=== PATIENT | female | born 1960 | race Caucasian/White ===

== ENCOUNTER 2016-10-20 22:11 | Emergency (ER) | payer OTHER ==
[~2016-10-20] VITALS: Ht 160 cm; Wt 81.8 kg
[~2016-10-20 22:11] MED LIST: ASPI81TA50 PO; ATEN-51 PO; BENA10TA48 PO; GLIP-95 PO; HYD25 PO; MAG355OR15 PO; NAPR-260 PO; PIOG30TA2 PO
[2016-10-20 22:21] VITALS: Ht 160 cm; Wt 81.8 kg
[2016-10-20] MEDS ORDERED: ATEN-51 PO (22:39)
[2016-10-20] MEDS ORDERED: HYD25 PO (22:39)
[2016-10-20] MEDS ORDERED: GLIP-95 PO (22:39)
[2016-10-20] MEDS ORDERED: PIOG30TA26 PO (22:40)
[2016-10-20] MEDS ORDERED: BENA10TA48 PO (22:40)
[2016-10-20] MEDS ORDERED: GABA100C14 PO (22:40)
[2016-10-20] MEDS ORDERED: ALBUTEROL 0.5% (NEB) 2.5 MG/0.5 ML AMP INH ONE (23:00)
[2016-10-20] MEDS ORDERED: IPRATROPIUM (NEB) 0.5 MG/2.5 ML AMP INH ONE (23:00)
--- NOTE | 2016-10-20 23:10 | RADRPT ---
PROCEDURE: XR Chest. CLINICAL INDICATION: Shortness of breath. TECHNIQUE: Portable AP upright view of the chest was obtained. COMPARISON: 10/06/2015 FINDINGS: The cardiomediastinal silhouette is within upper normal limits. Mild bibasilar subsegmental atelect asis is present without evidence of pneumonia. There is no evidence for pleural effusion, pneumotho rax or pulmonary vascular congestion. The osseous structures are intact with no evidence for acute abnormality. RPTAT:HJJR IMPRESSION: Top normal cardiac silhouette size with development of mild bibasilar subsegmental atelectasis nikita red to 10/06/2015. Physician Nancy Date Time Electronically viewed and signed by Shaggy Russell Physician on 10/20/2016 23:10 JR/
[2016-10-20 23:22] LABS: BASOPHIL # 0.1 10^3/ul (0.0-0.1); BASOPHILS % 0.9 % (0.0-2.0); EOSINOPHILS # 0.1 10^3/ul (0.0-0.5); EOSINOPHILS % 0.8 % (0.0-7.0); HEMATOCRIT 42.8 % (37.0-47.0); HEMOGLOBIN 14.8 g/dl (12.0-16.0); LYMPHOCYTES # 1.8 10^3/ul (0.8-2.9); LYMPHOCYTES % 26.1 % (15.0-51.0); MEAN CORPUSCULAR HEMOGLOBIN 30.9 pg (29.0-33.0); MEAN CORPUSCULAR HGB CONC 34.6 g/dl (32.0-37.0); MEAN CORPUSCULAR VOLUME 89.2 fl (82.0-101.0); MEAN PLATELET VOLUME 8.9 fl (7.4-10.4); MONOCYTE # 0.6 10^3/ul (0.3-0.9); MONOCYTES % 9.4 % (0.0-11.0); NEUTROPHIL # 4.4 10^3/ul (1.6-7.5); NEUTROPHILS % 62.8 % (39.0-77.0); PLATELET COUNT 186 10^3/UL (140-440); RED CELL DISTRIBUTION WIDTH 12.9 % (11.5-14.5); UNCORRECTED WBC 6.9 10^3/ul (4.8-10.8); WHITE BLOOD COUNT 6.9 10^3/ul (4.8-10.8)
[2016-10-20 23:25] LABS: POTASSIUM 3.8 mmol/L (3.5-5.1)
[2016-10-20 23:27] LABS: CREATININE 0.72 mg/dl (0.44-1.00)
[2016-10-20 23:28] LABS: CALCIUM 9.4 mg/dl (8.4-10.2)
[2016-10-20 23:34] LABS: CONDITION 1
[2016-10-20] MEDS ORDERED: IPRATROPIUM (NEB) 0.5 MG/2.5 ML AMP NEB STA (23:56)
[2016-10-20] MEDS ORDERED: ALBUTEROL 0.5% (NEB) 2.5 MG/0.5 ML AMP NEB STA (23:56)
[2016-10-21 00:12] VITALS: BP 98/50; PULSE 89; RESP 22
--- NOTE | 2016-10-21 00:38 | ERD ---
ER Documentation Chief Complaint Date/Time DATE: 10/21/16 TIME: 00:37 Chief Complaint FEVER WITH COUGH, CONGESTION, AND CHEST TIGHTNESS X 2 DAYS. NAUSEOUS TODAY HPI This is a 56-year-old female comes in with fever with cough just chest tightness for 2 days. That she was a little bit nauseous today. Cough is mildly productive of whitish sputum. No fevers or chills. No nausea no vomiting. No sick contacts. No other current complaints. ROS All systems reviewed and are negative except as per history of present illness. Medications Home Meds Reported Medications Pioglitazone Hcl* (Pioglitazone Hcl*) 30 Mg Tablet, 30 MG PO DAILY, TAB 10/20/16 Gabapentin* (Gabapentin*) 100 Mg Capsule, 100 MG PO TID, #90 CAP 10/20/16 Benazepril Hcl* (Benazepril Hcl*) 10 Mg Tablet, 10 MG PO DAILY, #30 TAB 10/20/16 Atenolol* (Atenolol*) 25 Mg Tablet, 25 MG PO BID, #60 TAB 10/20/16 Hydrochlorothiazide* (Hydrochlorothiazide*) 25 Mg Tab, 25 MG PO DAILY, #30 TAB 10/20/16 Glipizide* (Glipizide*) 10 Mg Tablet, 10 MG PO AC BREAKFAST DINNER, TAB 10/20/16 Discontinued Reported Medications Aspirin (Aspir-Low) 81 Mg Tablet.dr, 81 MG PO DAILY 10/06/15 Pioglitazone Hcl* (Actos*) 30 Mg Tablet, 30 MG PO DAILY, #30 TAB 10/06/15 Hydrochlorothiazide* (Hydrochlorothiazide*) 25 Mg Tab, 25 MG PO DAILY, #30 TAB 10/06/15 Benazepril Hcl* (Benazepril Hcl*) 10 Mg Tablet, 10 MG PO DAILY, #30 TAB 10/06/15 Glipizide* (Glipizide*) 10 Mg Tablet, 10 MG PO BID, TAB 10/06/15 Atenolol* (Atenolol*) 25 Mg Tablet, 25 MG PO BID, #60 TAB 10/06/15 Discontinued Scripts Mag Hydrox/Al Hydrox/Simeth (Maalox Max Strength Susp) 769 Ml Oral.susp, 2 TSP PO TID, #24 OZ Prov:IRMA AVILA MD 10/06/15 Naproxen* (Naprosyn*) 500 Mg Tablet, 500 MG PO BID Y for PAIN AND/OR INFLAMMATION, #30 TAB Prov:IRMA AVILA MD 10/06/15 Allergies Allergies: Coded Allergies: No Known Allergy (Unverified , 10/20/16) PMhx/Soc History of Surgery: No Anesthesia Reaction: No Hx Neurological Disorder: No Hx Respiratory Disorders: No Hx Cardiac Disorders: Yes (High B/p & diabetes) Hx Psychiatric Problems: No Hx Miscellaneous Medical Probl: Yes (DM ) Hx Alcohol Use: No Hx Substance Use: No Hx Tobacco Use: No Smoking Status: Never smoker Physical Exam Vitals Vital Signs Date Time Temp Pulse Resp B/P Pulse Ox O2 Delivery O2 Flow Rate FiO2 10/21/16 00:12 89 22 98/50 95 10/21/16 00:07 90 20 94 Nasal Cannula 2.0 10/20/16 23:03 Nasal Cannula 2 10/20/16 23:02 81 20 94 Nasal Cannula 2.0 10/20/16 22:21 98.2 85 22 98/54 93 10/20/16 22:21 Nasal Cannula 2.0 Physical Exam Const: [] Head: Atraumatic Eyes: Normal Conjunctiva ENT: Normal External Ears, Nose and Mouth. Neck: Full range of motion..~ No meningismus. Resp: Scattered wheezes bilaterally. Crackles in both lung bases. Cardio: Regular rate and rhythm, no murmurs Abd: Soft, non tender, non distended. Normal bowel sounds Skin: No petechiae or rashes Back: No midline or flank tenderness Ext: No cyanosis, or edema Neur: Awake and alert Psych: Normal Mood and Affect Result Diagram: 10/20/16225710/20/162257 Results 24 hrs Laboratory Tests Test 10/20/16 22:58 Anion Gap 16 Basophils # 0.110^3/ul Basophils % 0.9% Blood Urea Nitrogen 16mg/dl Calcium Level 9.4mg/dl Carbon Dioxide Level 27mmol/L Chloride Level 95mmol/L Creatinine 0.72mg/dl Eosinophils # 0.110^3/ul Eosinophils % 0.8% Glucose Level 176mg/dl Hematocrit 42.8% Hemoglobin 14.8g/dl Lactic Acid Level 2.1mmol/L Lymphocytes # 1.810^3/ul Lymphocytes % 26.1% Mean Corpuscular Hemoglobin 30.9pg Mean Corpuscular Hemoglobin Concent 34.6g/dl Mean Corpuscular Volume 89.2fl Mean Platelet Volume 8.9fl Monocytes # 0.610^3/ul Monocytes % 9.4% Neutrophils # 4.410^3/ul Neutrophils % 62.8% Nucleated Red Blood Cells # 0.010^3/ul Nucleated Red Blood Cells % 0.0/100WBC Platelet Count 12547^3/UL Potassium Level 3.8mmol/L Red Blood Count 4.8010^6/ul Red Cell Distribution Width 12.9% Sodium Level 134mmol/L White Blood Count 6.910^3/ul Current Medications Medications (Trade) Dose Ordered Sig/Bettie Route PRN Reason Start Time Stop Time Status Last Admin Dose Admin Albuterol (Proventil 0.5% (Neb)) 5 mg ONCE ONCE INH 10/20/16 23:00 10/20/16 23:01 DC 10/20/16 23:02 Ipratropium Amity (Atrovent 0.02% (Neb)) 0.5 mg ONCE ONCE INH 10/20/16 23:00 10/20/16 23:01 DC 10/20/16 23:01 Albuterol (Proventil 0.5% (Neb)) 5 mg ONCE STAT NEB 10/20/16 23:56 10/20/16 23:57 DC 10/21/16 00:07 Ipratropium Amity (Atrovent 0.02% (Neb)) 0.5 mg ONCE STAT NEB 10/20/16 23:56 10/20/16 23:57 DC 10/21/16 00:07 Procedures/MDM EKG: Rate/Rhythm: Normal Sinus Rhythm QRS, ST, T-waves: No changes consistent w/ acute ischemia Impression: No evidence of ischemia or arrhythmia Chest X-ray 1V Interpreted by me: Soft Tissue: No acute abnormalities Bones: No acute abnormalities Mediastinum/Cardiac Silhouette/Lungs: Peribronchial cuffing. Increased interstitial markings. Impression: Bronchitis Medical decision makin-year-old female comes in with cough with wheeze. Evidence of bronchitis on physical exam and on chest x-ray. Patient has feels better post breathing treatment. Patient will be discharged home with albuterol , azithromycin, prednisone, Tessalon. Return if worsening symptoms. Follow-up with PCP otherwise. Departure Diagnosis: Primary Impression: Cough Additional Impression: Acute bronchitis Bronchitis organism: unspecified organism Qualified Code: J20.9 - Acute bronchitis, unspecified organism Condition: Stable OLYA DRUMMOND Oct 21, 2016 00:38
[2016-10-21] MEDS ORDERED: PRED20TA PO (00:39)
[2016-10-21] MEDS ORDERED: ALBU18HF INHALATION (00:39)
[2016-10-21] MEDS ORDERED: AZIT250T94 PO (00:39)
== END 2016-10-21 00:51 | disposition home or self-care (01) ==
LOC: E/R 22:11
DX: R05 Cough (principal); J20.9 Acute bronchitis, unspecified; E11.9 Type 2 diabetes mellitus without complications; R06.02 Shortness of breath; Z79.84 Long term (current) use of oral hypoglycemic drugs; Z79.82 Long term (current) use of aspirin
CPT/HCPCS: 36415; 71010; 80048; 83605; 85025; 87040; 87400; 94640; 94664; Z7502; Z7610

== ENCOUNTER 2019-03-01 15:43 | Observation (INO) | payer OTHER ==
[~2019-03-01] VITALS: Ht 160 cm; Wt 103.0 kg
[~2019-03-01 15:43] MED LIST changes: +ALBU18HF INHALATION; -ASPI81TA50 PO; +AZIT250T PO; +BENA10TA4 PO; -BENA10TA48 PO; +GABA100C14 PO; -GLIP-95 PO; +GLIP10TA14 PO; -HYD25 PO; +HYDR25TA6 PO; -MAG355OR15 PO; -NAPR-260 PO; -PIOG30TA2 PO; +PIOG30TA71 PO; +PRED20TA PO
[2019-03-01 15:57] VITALS: Ht 160 cm; Wt 103.0 kg
[2019-03-01] MEDS ORDERED: HYDR25TA6 PO (17:11)
[2019-03-01] MEDS ORDERED: GLIP10TA14 PO (17:11)
[2019-03-01] MEDS ORDERED: GABA300C16 PO (17:12)
[2019-03-01] MEDS ORDERED: BENA10TA4 PO (17:12)
[2019-03-01] MEDS ORDERED: ATEN-51 PO (17:12)
[2019-03-01] MEDS ORDERED: ATOR20TA38 PO (17:13)
[2019-03-01] MEDS ORDERED: INSU100I33 SC (17:13)
[2019-03-01] MEDS ORDERED: PIOG30TA71 PO (17:14)
--- NOTE | 2019-03-01 18:57 | ERD ---
ER Documentation Chief Complaint Chief Complaint Pt BIB RA 37 with c/o intermittent CP radiates to back since yesterday. HPI 58-year-old female with a history of hypertension and diabetes presenting by ambulance for left-sided and substernal chest pain that started today about 1 hour prior to arrival. This started after an argument with her niece. She started having pressure-like chest pain that she described as "bricks on my c hest". Her pain is radiating to her left shoulder. 8 out of 10 in intensity. Had associated shortness of breath, nausea, and dizziness. She was given nitro in the ambulance with improvement of her symptoms. She was also given aspirin prior to arrival. She has never experienced such severe pain before. Denies any cardiac history. ROS All systems reviewed and are negative except as per history of present illness. Medications Home Meds Reported Medications Pioglitazone Hcl* (Pioglitazone Hcl*) 30 Mg Tablet, 30 MG PO DAILY, TAB 03/01/19 Atorvastatin Calcium* (Atorvastatin Calcium*) 20 Mg Tablet, 20 MG PO QHS, #30 TAB 03/01/19 Insulin Glargine,Hum.rec.anlog (Basaglcornell Cruzpen U-100) 100 Unit/1 Ml Insuln.pen, 28 UNIT SC QHS, EA 03/01/19 Gabapentin* (Gabapentin*) 300 Mg Capsule, 600 MG PO BID, #60 CAP 03/01/19 Benazepril Hcl* (Benazepril Hcl*) 10 Mg Tablet, 10 MG PO DAILY, #30 TAB 03/01/19 Atenolol* (Atenolol*) 25 Mg Tablet, 25 MG PO BID, #60 TAB 03/01/19 Hydrochlorothiazide* (Hydrochlorothiazide*) 25 Mg Tab, 25 MG PO DAILY, #30 TAB 03/01/19 Glipizide* (Glipizide*) 10 Mg Tablet, 20 MG PO AC BREAKFAST DINNER, TAB 03/01/19 Discontinued Reported Medications Pioglitazone Hcl* (Pioglitazone Hcl*) 30 Mg Tablet, 30 MG PO DAILY, TAB 10/20/16 Gabapentin* (Gabapentin*) 100 Mg Capsule, 100 MG PO TID, #90 CAP 10/20/16 Benazepril Hcl* (Benazepril Hcl*) 10 Mg Tablet, 10 MG PO DAILY, #30 TAB 10/20/16 Atenolol* (Atenolol*) 25 Mg Tablet, 25 MG PO BID, #60 TAB 10/20/16 Hydrochlorothiazide* (Hydrochlorothiazide*) 25 Mg Tab, 25 MG PO DAILY, #30 TAB 10/20/16 Glipizide* (Glipizide*) 10 Mg Tablet, 10 MG PO AC BREAKFAST DINNER, TAB 10/20/16 Discontinued Scripts Azithromycin* (Zithromax*) 250 Mg Tablet, 250 MG PO .NigelPACK DIRECTED, #6 TAB TAKE 500 MG (2 TABS) THE FIRST DAY THEN 250 MG (1 TAB) DAYS 2-5 Prov:OLYA DRUMMOND 10/21/16 Albuterol Sulfate* (Ventolin HFA*) 18 Gm Hfa.aer.ad, 2 PUFF INHALATION Q4H, #1 INHALER Prov:OLYA DRUMMOND 10/21/16 Prednisone* (Prednisone*) 20 Mg Tab, 40 MG PO DAILY for 4 Days, TAB Prov:OLYA DRUMMOND 10/21/16 Allergies Allergies: Coded Allergies: metformin (Unverified Allergy, Unknown, 03/01/19) naproxen (Unverified Allergy, Unknown, 03/01/19) PMhx/Soc History of Surgery: No Anesthesia Reaction: No Hx Neurological Disorder: No Hx Respiratory Disorders: No Hx Cardiac Disorders: Yes (High B/p & diabetes) Hx Psychiatric Problems: No Hx Miscellaneous Medical Probl: Yes (DM ) Hx Alcohol Use: No Hx Substance Use: No Hx Tobacco Use: No Smoking Status: Never smoker FmHx Family History: coronary disease Physical Exam Vitals Vital Signs Date Temp Pulse Resp B/P (MAP) Pulse Ox O2 O2 Flow FiO2 Time Delivery Rate 03/01/19 98.2 80 16 104/51 93 15:57 (68) Physical Exam Const: No acute distress Head: Atraumatic Eyes: Normal Conjunctiva ENT: Normal External Ears, Nose and Mouth. Neck: Full range of motion. No meningismus. Resp: Clear to auscultation bilaterally Cardio: Regular rate and rhythm, no murmurs. 2+ distal pulses Abd: Soft, non tender, non distended. Normal bowel sounds Skin: No petechiae or rashes Back: No midline or flank tenderness Ext: No cyanosis. trace bilateral lower extremity edema. No calf tenderness Neur: Awake and alert, no facial asymmetry, normal speech, moving all extremities. Psych: Normal Mood and Affect Result Diagram: 03/01/19 1622 03/01/19 1622 Results 24 hrs Laboratory Tests Test 03/01/19 16:22 White Blood Count 6.1 10^3/ul Red Blood Count 4.25 10^6/ul Hemoglobin 12.4 g/dl Hematocrit 37.3 % Mean Corpuscular Volume 87.8 fl Mean Corpuscular Hemoglobin 29.2 pg Mean Corpuscular Hemoglobin Concent 33.2 g/dl Red Cell Distribution Width 13.2 % Platelet Count 215 10^3/UL Mean Platelet Volume 9.5 fl Immature Granulocytes % 0.300 % Neutrophils % 55.0 % Lymphocytes % 34.0 % Monocytes % 5.3 % Eosinophils % 4.6 % Basophils % 0.8 % Nucleated Red Blood Cells % 0.0 /100WBC Immature Granulocytes # 0.020 10^3/ul Neutrophils # 3.3 10^3/ul Lymphocytes # 2.1 10^3/ul Monocytes # 0.3 10^3/ul Eosinophils # 0.3 10^3/ul Basophils # 0.1 10^3/ul Nucleated Red Blood Cells # 0.0 10^3/ul Sodium Level 138 mmol/L Potassium Level 4.1 mmol/L Chloride Level 101 mmol/L Carbon Dioxide Level 28 mmol/L Anion Gap 9 Blood Urea Nitrogen 20 mg/dl Creatinine 0.71 mg/dl Est Glomerular Filtrat Rate mL/min > 60 mL/min Glucose Level 362 mg/dl Calcium Level 9.3 mg/dl Troponin I < 0.012 ng/ml Current Medications Medications Dose Sig/Bettie Start Time Status Last (Trade) Ordered Route PRN Stop Time Admin Dose Reason Admin Ondansetron 4 mg ER BRIDGE 03/01/19 HCl (Zofran PRN IV 19:00 Inj) NAUSEA/VOMITI 03/02/19 18:59 NG 650 mg ER BRIDGE 03/01/19 Acetaminophen PRN PO 19:00 (Tylenol .MILD PAIN 03/02/19 18:59 Tab) 1-3 OR TEMP Procedures/MDM EMERGENT LABS AND DIAGNOSTIC STUDIES: Lab Results above were reviewed and interpreted by me. CBC: no anemia or evidence of infection BMP: Hyperglycemic. No e/o clinically significant electrolyte abnormality severe acidosis, alkalosis, renal failure, diabetic ketoacidosis Troponin within normal limits, not indicative of cardiac ischemia 12-lead EKG was interpreted by Fadia Cadet MD: Normal Sinus Rhythm Normal axis Normal intervals No acute ST or T wave changes suggestive of acute ischemia or STEMI. Radiology Results as interpreted by Radiology below were reviewed by SMartha ferguson MD: Chest x-ray shows no significant abnormalities Initial Nursing notes reviewed. Previous Medical Records requested via the Electronic Health Record. EMERGENCY DEPARTMENT COURSE / MEDICAL DECISION MAKING: Patients symptoms are concerning for a cardiac etiology. Other etiologies considered were PE, aortic dissection, pneumonia, pneumothorax, esophageal rupture. EKG showed no acute ischemia. Initial troponin negative. CXR grossly unremarkable. However patient has an intermediate risk of adverse events. Plan to admit for further evaluation. Patient is not safe for discharge and will need inpatient monitoring and further evaluation. Further workup will be deferred to the inpatient team. Accepting Care Team: Current data and ongoing care discussed. Time: Time of admission Primary Provider: Dr. Hank Garrison Diagnosis: Primary Impression: Chest pain Chest pain type: unspecified Qualified Codes: R07.9 - Chest pain, unspecified Additional Impression: Hyperglycemia Condition: ARMANDO Garvey MD Mar 01, 2019 18:57
[2019-03-01] MEDS ORDERED: ACETAMINOPHEN 325 MG TAB PO PRN ×2 (19:00→20:00)
[2019-03-01] MEDS ORDERED: ONDANSETRON 4 MG INJ IV PRN ×2 (19:00→20:00)
--- NOTE | 2019-03-01 19:51 | HP ---
Date/Time of Note Date/Time of Note DATE: 03/01/19 TIME: 19:50 Assessment/Plan VTE Prophylaxis SCD applied (from Nsg): Yes Pharmacological prophylaxis: NA/contraindicated Pharm contraindication: low risk/ambulating Lines/Catheters IV Catheter Type (from Nrsg): Saline Lock Assessment/Plan Hospital Course This is a 58-year-old female being admitted to the telemetry floor for observation for: #1 chest pain: Rule out ACS versus anxiety. Will trend cardiac enzymes x3, the first that was negative. Will check an echocardiogram. PRN morphine/nitro. Check hemoglobin A1c, lipid panel, TSH. Consider cardiology consultation if indicated. #2 hypertension: Resume lisinopril, hydrochlorothiazide #3 diabetes mellitus: We will check hemoglobin A1c, continue Lantus, will hold home oral medications #4 hyperlipidemia: We will check lipid panel, continue statin #5 morbid obesity: We will check hemoglobin A1c, lipid panel, TSH, encourage diet and lifestyle modification #6 DVT GI prophylaxis: SCDs, no GI prophylaxis indicated Further treatment strategy will be implemented as per the clinical course. Result Diagram: 03/01/19 1622 03/01/19 1622 Results 24hrs Laboratory Tests Test 03/01/19 16:22 White Blood Count 6.1 Red Blood Count 4.25 Hemoglobin 12.4 Hematocrit 37.3 Mean Corpuscular Volume 87.8 Mean Corpuscular Hemoglobin 29.2 Mean Corpuscular Hemoglobin Concent 33.2 Red Cell Distribution Width 13.2 Platelet Count 215 Mean Platelet Volume 9.5 Immature Granulocytes % 0.300 Neutrophils % 55.0 Lymphocytes % 34.0 Monocytes % 5.3 Eosinophils % 4.6 Basophils % 0.8 Nucleated Red Blood Cells % 0.0 Immature Granulocytes # 0.020 Neutrophils # 3.3 Lymphocytes # 2.1 Monocytes # 0.3 Eosinophils # 0.3 Basophils # 0.1 Nucleated Red Blood Cells # 0.0 Sodium Level 138 Potassium Level 4.1 Chloride Level 101 Carbon Dioxide Level 28 Anion Gap 9 Blood Urea Nitrogen 20 Creatinine 0.71 Est Glomerular Filtrat Rate mL/min > 60 Glucose Level 362 H Calcium Level 9.3 Troponin I < 0.012 HPI/ROS Admit Date/Time Admit Date/Time Hx of Present Illness Chief complaint: Chest pressure This is a 58-year-old female with a past medical history of hypertension, hyperlipidemia, diabetes who presented to the [facility] emergency department via EMS for chest pressure. Patient reported that approximately around 3:30 PM after she returned home from lunch she was at home. She reports that she got into an argument with her relative at home and shortly after that started experiencing chest heaviness. She denies any radiation of the pain. She did report that she felt short of breath. The pain continued until 9 1 arrived and they gave her nitro spray which did help relieve her symptoms. She is on a regular basis does not report any chest pain or shortness of breath. Allergies: Metformin, naproxen Medications: Actos Atenolol Atorvastatin Benazepril Gabapentin Hydrochlorothiazide Lantus 28 units ROS Const: As per HPI Eyes : No pain discharge or redness or change in visual acuity ENT: No pain, sore throat, congestion, congestion, dysphagia or discharge Respiratory: As per HPI Cardiovascular: As per HPI GI : no change in appetite, abdominal pain, nausea, vomiting, diarrhea, constipation, or change in the color his stool Genitourinary: No dysuria, hematuria, flank pain , discharge or CVA tenderness Musculoskeletal: No joint pain, back pain, neck pain, restricted range of motion in neck or joints Skin: No rash, bruising or hives Neuro: No headache, dizziness, syncope, seizure, focal weakness Endocrine: No polyuria, polydipsia, temperature intolerance Psych: No hallucination, depression, anxiety or suicidal ideation PMH/Family/Social Past Medical History Hyperlipidemia, diabetes mellitus, hypertension Medications Current Medications Ondansetron HCl (Zofran Inj) 4 mg ER BRIDGE PRN IV NAUSEA/VOMITING; Start 03/01/19 at 19:00; Stop 03/02/19 at 18:59 Acetaminophen (Tylenol Tab) 650 mg ER BRIDGE PRN PO .MILD PAIN 1-3 OR TEMP; Start 03/01/19 at 19:00; Stop 03/02/19 at 18:59 Atenolol (Tenormin) 25 mg BID PO ; Start 03/01/19 at 21:00; Status UNV Atorvastatin Calcium (Lipitor) 20 mg QHS PO ; Start 03/01/19 at 21:00; Status UNV Benazepril HCl (Lotensin) 10 mg DAILY PO ; Start 03/02/19 at 09:00; Status UNV Gabapentin (Neurontin) 600 mg BID PO ; Start 03/01/19 at 21:00; Status UNV Hydrochlorothiazide (Hydrochlorothiazide) 25 mg DAILY PO ; Start 03/02/19 at 09:00; Status UNV Insulin Glargine (Lantus) 28 unit QHS SC ; Start 03/01/19 at 21:00; Status UNV Coded Allergies: metformin (Unverified Allergy, Unknown, 03/01/19) naproxen (Unverified Allergy, Unknown, 03/01/19) Past Surgical History Past Surgical Hx: no surgical history Family History Significant Family History: no pertinent family hx Social History Alcohol Use: none Smoking Status: Never smoker Drug Use: none Exam/Review of Systems Vital Signs Vitals Vital Signs Date Temp Pulse Resp B/P (MAP) Pulse Ox O2 O2 Flow FiO2 Time Delivery Rate 03/01/19 98.2 69 24 123/96 98 Nasal 2.0 18:13 (105) Cannula Exam Exam General: Patient is a pleasant female currently lying in bed in no acute distress HEENT: Atraumatic, normocephalic. The pupils are equal, round and reactive. Extraocular motor are intact Neck: Supple with full range of motion. No rigidity or meningismus Chest: Nontender to palpation Lungs: Clear to auscultation bilaterally no crackles rales or wheezing Heart: Normal S1-S2, Regular rhythm and rate. No murmur, S3, or S4 Abdomen: Morbidly obese, soft , nontender, nondistended , bowel sounds are present. No guarding no rebound tenderness , No masses or organomegaly. No costovertebral temporal angle mass Extremities: Normal to inspection, no edema no cyanosis Neurologic: Normal mental status, speech normal, cranial nerves II through XII are intact, motor and sensory are intact, no focal weakness Additional Comments EKG: Normal sinus rhythm at approximately 73 bpm, no ST or T wave abnormalities concerning for acute ischemia PROCEDURE: XR Chest. CLINICAL INDICATION: Chest pain. TECHNIQUE: Single frontal view. COMPARISON: 10/20/2016. FINDINGS: There is mild left basilar atelectasis. The lungs are otherwise clear. The heart size is normal. There is no pleural effusion. There is no pneumothorax. IMPRESSION: 1. Mild left basilar atelectasis. 2. Otherwise unremarkable chest radiograph. RPTAT: QQ .Tyrone Evans MD, Date Time Electronically viewed and signed by .Tyrone Evans MD, on 03/01/2019 17:19 .R/ CC: ARMANDO GARCIA MD [id number] EKG Normal Sinus Rhythm Normal axis Normal intervals No acute ST or T wave changes suggestive of acute ischemia or STEMI. MALENA WATT Mar 01, 2019 19:51
[2019-03-01] MEDS ORDERED: GLUCOSE GEL 15 GRAM TUBE BUCCAL PRN (20:00)
[2019-03-01] MEDS ORDERED: DEXTROSE 50% 50 ML SYRINGE IV PRN ×2 (20:00)
[2019-03-01] MEDS ORDERED: morphine 2 MG INJ IV PRN (20:00)
[2019-03-01] MEDS ORDERED: BISACODYL (EC) 5 MG TAB PO PRN (20:00)
[2019-03-01] MEDS ORDERED: DOCUSATE SODIUM 100 MG CAP PO PRN (20:00)
[2019-03-01] MEDS ORDERED: GLUCAGON 1 MG INJ IM PRN (20:00)
[2019-03-01] MEDS ORDERED: GLUCOSE GEL 15 GRAM TUBE PO PRN ×2 (20:00)
[2019-03-01] MEDS ORDERED: NACL 0.9% 3 ML SYG IV SCH (20:00)
[2019-03-01] MEDS ORDERED: NITROGLYCERIN (SL) 0.4 MG TAB SL PRN (20:00)
[2019-03-01] MEDS: ATORVASTATIN 20 MG TAB PO SCH (20:24)
[2019-03-01] MEDS: GABAPENTIN 300 MG CAP PO SCH (20:25)
[2019-03-01] MEDS ORDERED: INSULIN GLARGINE [LANTus] (100 UNITS/ML) SYG SC SCH (21:00)
[2019-03-01] MEDS: ATENOLOL 25 MG TAB PO SCH (21:00)
[2019-03-01] MEDS ORDERED: INSULIN GLARGINE [LANtus] 3 ML PEN SC SCH (21:00)
[2019-03-02] VITALS (12 sets, daily range): BP systolic 83–114; BP diastolic 48–64; PULSE 63–83; RESP 17–18
[2019-03-02] MEDS: HYDROCHLOROTHIAZIDE 25 MG TAB PO SCH (08:13)
[2019-03-02] MEDS: BENAZEPRIL 10 MG TAB PO SCH (08:14)
[2019-03-02] MEDS: GABAPENTIN 300 MG CAP PO SCH ×2 (08:14→20:25)
[2019-03-02] MEDS: ATENOLOL 25 MG TAB PO SCH ×2 (08:15→20:25)
[2019-03-02] MEDS: INSULIN ASPART [NOVOLOG] 3 ML PEN SC SCH ×5 (12:13→20:43)
--- NOTE | 2019-03-02 14:50 | PN ---
Date/Time of Note Date/Time of Note DATE: 03/02/19 TIME: 14:47 Assessment/Plan VTE Prophylaxis Risk score (from Nsg)>0 risk: 1 SCD applied (from Nsg): Yes Lines/Catheters IV Catheter Type (from Nrsg): Saline Lock Urinary Cath still in place: No Assessment/Plan Hospital Course Assessment and plan 1. Chest pain. Troponin x3-. Echocardiogram is pending. Patient did report resolution of chest pain with nitro in the field. She still reports chest pain more notably on exertion that has progressively been getting worse for the past 6 months. She also reports dyspnea on exertion. 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 2. Hypertension. Continue antihypertensives. We will just need 3. Diabetes. Patient with poorly controlled diabetes. Will start on insulin regimen. Will get community health educator. 4. Hyperlipidemia. Resume on statin medication. 5. obesity Weight reduction was advised. Disposition and plan. Patient still reports having chest pain and shortness of breath on exertion. Echocardiogram is pending. Patient Assessment Coordinator consultation to follow. Monitor in-house. Discussed discussed POC with Dr. Gallegos Result Diagram: 03/02/19 0512 03/02/19 0511 Results 24hrs Laboratory Tests Test 03/01/19 16:22 03/01/19 20:18 03/01/19 23:00 03/02/19 05:11 White Blood Count 6.1 Red Blood Count 4.25 Hemoglobin 12.4 Hematocrit 37.3 Mean Corpuscular 87.8 Volume Mean Corpuscular 29.2 Hemoglobin Mean Corpuscular 33.2 Hemoglobin Concent Red Cell 13.2 Distribution Width Platelet Count 215 Mean Platelet Volume 9.5 Immature 0.300 Granulocytes % Neutrophils % 55.0 Lymphocytes % 34.0 Monocytes % 5.3 Eosinophils % 4.6 Basophils % 0.8 Nucleated Red Blood 0.0 Cells % Immature 0.020 Granulocytes # Neutrophils # 3.3 Lymphocytes # 2.1 Monocytes # 0.3 Eosinophils # 0.3 Basophils # 0.1 Nucleated Red Blood 0.0 Cells # Sodium Level 138 140 Potassium Level 4.1 3.9 Chloride Level 101 102 Carbon Dioxide Level 28 30 Anion Gap 9 8 Blood Urea Nitrogen 20 21 H Creatinine 0.71 0.81 Est Glomerular > 60 > 60 Filtrat Rate mL/min Glucose Level 362 H 292 H Calcium Level 9.3 9.5 Troponin I < 0.012 < 0.012 < 0.012 Bedside Glucose 259 H Creatine Kinase 69 66 Creatine Kinase 1.1 1.0 Index Creatinine Kinase MB 0.73 0.67 (Mass) Magnesium Level 1.8 Total Bilirubin 0.4 Direct Bilirubin 0.00 Indirect Bilirubin 0.4 Aspartate Amino 15 Transf (AST/SGOT) Alanine 20 Aminotransferase (AL T/SGPT) Alkaline Phosphatase 123 H Total Protein 6.6 Albumin 3.5 Globulin 3.10 Albumin/Globulin 1.12 Ratio Triglycerides Level 298 H Cholesterol Level 157 LDL Cholesterol, 61 Calculated HDL Cholesterol 36 Cholesterol/HDL 4.3 Ratio Thyroid Stimulating 0.999 Hormone (TSH) Test 03/02/19 05:12 03/02/19 08:07 03/02/19 11:50 White Blood Count 7.1 Red Blood Count 4.21 Hemoglobin 12.3 Hematocrit 37.4 Mean Corpuscular 88.8 Volume Mean Corpuscular 29.2 Hemoglobin Mean Corpuscular 32.9 Hemoglobin Concent Red Cell 13.1 Distribution Width Platelet Count 234 Mean Platelet Volume 10.4 Immature 0.300 Granulocytes % Neutrophils % 51.2 Lymphocytes % 36.6 Monocytes % 5.4 Eosinophils % 5.5 Basophils % 1.0 Nucleated Red Blood 0.0 Cells % Immature 0.020 Granulocytes # Neutrophils # 3.6 Lymphocytes # 2.6 Monocytes # 0.4 Eosinophils # 0.4 Basophils # 0.1 Nucleated Red Blood 0.0 Cells # Hemoglobin A1c 10.4 H Bedside Glucose 276 H 323 H Subjective 24 Hr Interval Summary Free Text/Dictation reports having chest pain, more notably on exertion Exam/Review of Systems Exam Vitals Vital Signs Date Temp Pulse Resp B/P (MAP) Pulse Ox O2 O2 Flow FiO2 Time Delivery Rate 03/02/19 82 12:05 03/02/19 97.9 18 100/59 91 Room Air 11:07 (73) 03/02/19 2.0 01:44 Constitutional: alert, oriented, obese Head: normocephalic Neck: supple, non-tender Cardiovascular: regular rate and rhythm Gastrointestinal: soft, non-tender Musculoskeletal: other (chest pain on palpation on right side ) Extremities: edema (ble ) Neurological: FINISHER BRUSH II-XII intact, nl mental status, nl speech Results Results 24hrs Laboratory Tests Test 03/01/19 16:22 03/01/19 20:18 03/01/19 23:00 03/02/19 05:11 White Blood Count 6.1 Red Blood Count 4.25 Hemoglobin 12.4 Hematocrit 37.3 Mean Corpuscular 87.8 Volume Mean Corpuscular 29.2 Hemoglobin Mean Corpuscular 33.2 Hemoglobin Concent Red Cell 13.2 Distribution Width Platelet Count 215 Mean Platelet Volume 9.5 Immature 0.300 Granulocytes % Neutrophils % 55.0 Lymphocytes % 34.0 Monocytes % 5.3 Eosinophils % 4.6 Basophils % 0.8 Nucleated Red Blood 0.0 Cells % Immature 0.020 Granulocytes # Neutrophils # 3.3 Lymphocytes # 2.1 Monocytes # 0.3 Eosinophils # 0.3 Basophils # 0.1 Nucleated Red Blood 0.0 Cells # Sodium Level 138 140 Potassium Level 4.1 3.9 Chloride Level 101 102 Carbon Dioxide Level 28 30 Anion Gap 9 8 Blood Urea Nitrogen 20 21 H Creatinine 0.71 0.81 Est Glomerular > 60 > 60 Filtrat Rate mL/min Glucose Level 362 H 292 H Calcium Level 9.3 9.5 Troponin I < 0.012 < 0.012 < 0.012 Bedside Glucose 259 H Creatine Kinase 69 66 Creatine Kinase 1.1 1.0 Index Creatinine Kinase MB 0.73 0.67 (Mass) Magnesium Level 1.8 Total Bilirubin 0.4 Direct Bilirubin 0.00 Indirect Bilirubin 0.4 Aspartate Amino 15 Transf (AST/SGOT) Alanine 20 Aminotransferase (AL T/SGPT) Alkaline Phosphatase 123 H Total Protein 6.6 Albumin 3.5 Globulin 3.10 Albumin/Globulin 1.12 Ratio Triglycerides Level 298 H Cholesterol Level 157 LDL Cholesterol, 61 Calculated HDL Cholesterol 36 Cholesterol/HDL 4.3 Ratio Thyroid Stimulating 0.999 Hormone (TSH) Test 03/02/19 05:12 03/02/19 08:07 03/02/19 11:50 White Blood Count 7.1 Red Blood Count 4.21 Hemoglobin 12.3 Hematocrit 37.4 Mean Corpuscular 88.8 Volume Mean Corpuscular 29.2 Hemoglobin Mean Corpuscular 32.9 Hemoglobin Concent Red Cell 13.1 Distribution Width Platelet Count 234 Mean Platelet Volume 10.4 Immature 0.300 Granulocytes % Neutrophils % 51.2 Lymphocytes % 36.6 Monocytes % 5.4 Eosinophils % 5.5 Basophils % 1.0 Nucleated Red Blood 0.0 Cells % Immature 0.020 Granulocytes # Neutrophils # 3.6 Lymphocytes # 2.6 Monocytes # 0.4 Eosinophils # 0.4 Basophils # 0.1 Nucleated Red Blood 0.0 Cells # Hemoglobin A1c 10.4 H Bedside Glucose 276 H 323 H Medications Medication Current Medications Atenolol (Tenormin) 25 mg BID PO Last administered on 03/02/19 08:15; Admin Dose 25 MG; Start 03/01/19 at 21:00 Atorvastatin Calcium (Lipitor) 20 mg QHS PO Last administered on 03/01/19 20:24; Admin Dose 20 MG; Start 03/01/19 at 21:00 Benazepril HCl (Lotensin) 10 mg DAILY PO Last administered on 03/02/19 08:14; Admin Dose 10 MG; Start 03/02/19 at 09:00 Gabapentin (Neurontin) 600 mg BID PO Last administered on 03/02/19 08:14; Admin Dose 600 MG; Start 03/01/19 at 21:00 Hydrochlorothiazide (Hydrochlorothiazide) 25 mg DAILY PO Last administered on 03/02/19 08:13; Admin Dose 25 MG; Start 03/02/19 at 09:00 IV Flush (NS 3 ml) 3 ml PER PROTOCOL IV ; Start 03/01/19 at 20:00 Ondansetron HCl (Zofran Inj) 4 mg Q6H PRN IV NAUSEA/VOMITING; Start 03/01/19 at 20:00 Nitroglycerin (Nitroglycerin (Sl Tab) 0.4 Mg) 1 tab Q5M PRN SL .CHEST PAIN; Start 03/01/19 at 20:00 Acetaminophen (Tylenol Tab) 650 mg Q6H PRN PO .PAIN 1-3 OR TEMP Last administered on 03/02/19at 13:05; Admin Dose 650 MG; Start 03/01/19 at 20:00 Morphine Sulfate (morphine) 2 mg Q4H PRN IV .PAIN 7-10; Start 03/01/19 at 20:00 Docusate Sodium (Colace) 100 mg Q12H PRN PO .CONSTIPATION; Start 03/01/19 at 20:00 Bisacodyl (Dulcolax) 5 mg DAILY PRN PO .CONSTIPATION; Start 03/01/19 at 20:00 Miscellaneous Information 1 ea NOTE XX ; Start 03/01/19 at 20:00 Glucose (Glutose) 15 gm Q15M PRN PO DECREASED GLUCOSE; Start 03/01/19 at 20:00 Glucose (Glutose) 22.5 gm Q15M PRN PO DECREASED GLUCOSE; Start 03/01/19 at 20:00 Dextrose (D50w Syringe) 25 ml Q15M PRN IV DECREASED GLUCOSE; Start 03/01/19 at 20:00 Dextrose (D50w Syringe) 50 ml Q15M PRN IV DECREASED GLUCOSE; Start 03/01/19 at 20:00 Glucagon (Glucagen) 1 mg Q15M PRN IM DECREASED GLUCOSE; Start 03/01/19 at 20:00 Glucose (Glutose) 15 gm Q15M PRN BUCCAL DECREASED GLUCOSE; Start 03/01/19 at 20:00 Diagnostic Test (Pha) (Accu-Chek) 1 ea 02 XX ; Start 03/03/19 at 02:00 Insulin Glargine (Lantus) 15 units DAILY@2000 SC ; Start 03/02/19 at 20:00 Insulin Aspart (Novolog Insulin Pen) 5 unit WITH MEALS SC Last administered on 03/02/19at 12:13; Admin Dose 5 UNIT; Start 03/02/19 at 12:00 Insulin Aspart (Novolog Insulin Pen) NOVOLOG *MILD* ALGORITHM WITH MEALS BEDTIME SC Last administered on 03/02/19at 12:15; Admin Dose 5 UNIT; Start 03/02/19 at 12:00 STORM BRAN NP Mar 02, 2019 14:50
[2019-03-02] MEDS: HYDROCODONE/APAP (5/325) TAB PO PRN (15:12)
--- NOTE | 2019-03-02 16:02 | RADRPT ---
Echocardiogram Report Patient Name: CAROLINA SALDIVARPatient ID: [id number] : 1960 (58y 7m)Study Date: 03/02/2019 8:41:40 AM Gender: FAccession #: [id number] Tech: Lore Woods [facility] Location: [facility] Ref.Physician: MALENA WATT Height(Cm): BSA: Weight(Kg): Quality: AdequateOrder Physician: MALENA WATT Account #: Procedures: Echocardiographic Report: Transthoracic echocardiogram with complete 2D, M-Mode, and doppler examination. Indications: Chest Pain. Measurements: 2D/M Mode Doppler Measurement Value Normal Range Measurement Value Normal Range LVIDd 2D 4.8 [ 3.8 - 5.2 ] cm AV Peak [place] 1.8 [ 100.0 - 170.0 ] cm/sec LVIDs 2D 3.0 [ 2.2 - 3.5 ] cm AV Peak PG 13.0 [ 2.0 - 9.0 ] mmHg LVPWd 2D 1.0 [ 0.6 - 0.9 ] cm LVOT Peak [place] 1.2 [ 70.0 - 110.0 ] cm/sec IVSd 2D 1.0 [ 0.6 - 0.9 ] cm LVOT Peak PG 6.0 [ 2.0 - 6.0 ] mmHg AoR Diam 2D 2.7 [ 2.3 - 3.1 ] cm MV E Peak [place] 0.9 [ 60.0 - 130.0 ] cm/sec EDV 2D 108.0 [ 46.0 - 106.0 ] ml MV A Peak [place] 1.1 [ 100.0 - 120.0 ] cm/sec ESV 2D 33.6 [ 14.0 - 42.0 ] ml MV E/A 0.8 [ 0.8 - 1.5 ] ratio EF 2D 68.9 [ 54.0 - 74.0 ] percent MV Decel Time 176 [ 104 - 258 ] msec LA Dimen 2D 3.7 [ 2.7 - 3.8 ] cm Lat E` Ever[place] 0.1 [ 10.0 - 15.0 ] cm/sec Lateral E/E` 8.7 [ 1.0 - 2.0 ] ratio Med E` Ever[place] 0.1 cm/sec MV E/A 0.8 [ 0.8 - 1.5 ] ratio TR Peak Ever[place] 1.8 [ 100.0 - 280.0 ] cm/sec TR Peak PG 13.0 mmHg RVSP 16.0 [ 10.0 - 36.0 ] mmHg RA Pressure 3.0 mmHg Findings: Left Ventricle: Normal left ventricular systolic function. Normal left ventricular cavity size. Normal left ventricular wall thickness. Ejection fraction is visually estimated at 60 %. Tissue Doppler/Mitral Doppler indices are consistent with impaired relaxation (Stage I diastolic dysfunction). Right Ventricle: Normal right ventricular size. Normal right ventricular systolic function. Left Atrium: The left atrium is normal in size. Right Atrium: The right atrium is normal in size. Mitral Valve: Normal appearance and function of the mitral valve with trace physiologic regurgitation. Aortic Valve: Normal appearance of the aortic valve. No significant aortic stenosis or insufficiency. Tricuspid Valve: Normal appearance and function of the tricuspid valve with trace physiologic regurgitation. Pulmonic Valve: Normal pulmonic valve appearance. Pericardium: Normal pericardium with no significant pericardial effusion. Aorta: Normal aortic root. IVC: Normal size and normal respiratory collapse consistent with normal right atrial pressure. Conclusions: Normal left ventricular systolic function. Normal left ventricular cavity size. Normal left ventricular wall thickness. Ejection fraction is visually estimated at 60 %. Tissue Doppler/Mitral Doppler indices are consistent with impaired relaxation (Stage I diastolic dysfunction). Normal right ventricular size. Normal right ventricular systolic function. The left atrium is normal in size. The right atrium is normal in size. No significant valvular stenosis or regurgitation seen. Normal pericardium with no significant pericardial effusion. Electronically Signed By: Ortega Villalobos 2019-03-02 16:01:11 PDT
--- NOTE | 2019-03-02 16:33 | CONS ---
Assessment/Plan Assessment/Plan Hospital Course (Demo Recall) Chest pain Preserved left ventricular ejection fraction Hypertension Dyslipidemia Obesity Patient with symptoms of chest pain which occurred at rest as well as after heated argument. Denies any current chest pain. She does also complain of dyspnea on exertion which is intermittent and not always present. Serial cardiac enzymes are negative, ECG with no significant ischemic abnormalities, echocardiogram with preserved left ventricular ejection fraction Patient with multiple risk factors for coronary disease. I discussed the options with the patient of inpatient versus outpatient ischemic work-up, she prefers inpatient stress test. Would plan for tomorrow. Consultation Date/Type/Reason Admit Date/Time Type of Consult Cardiology Reason for Consultation Chest pain Date/Time of Note DATE: 03/02/19 TIME: 16:30 Hx of Present Illness This is a 58-year-old female with past medical history of hypertension, diabetes presents with chest pain. First episode was 2 nights ago. Pain was in the middle of the chest. There was associated shortness of breath. Patient took some carbonated beverage and discomfort improved. Next day, patient with recurrent episode after a heated argument. Patient also with shortness of breath. No one was called. She says after aspirin and nitro she felt better. She does complain of exertional fatigue, she does have neuropathy. She does get occasional exertional shortness of breath but it is not consistent. He denies exertional chest pain. She denies current chest pain or shortness of breath. 12 point review of systems was performed with all pertinent positives and negatives mentioned above and all else is negative Past Medical History Medical History: diabetes, high cholesterol, hypertension Home Meds Reported Medications Pioglitazone Hcl* (Pioglitazone Hcl*) 30 Mg Tablet, 30 MG PO DAILY, TAB 03/01/19 Atorvastatin Calcium* (Atorvastatin Calcium*) 20 Mg Tablet, 20 MG PO QHS, #30 TAB 03/01/19 Insulin Glargine,Hum.rec.anlog (Basaglar Kwikpen U-100) 100 Unit/1 Ml Insuln.pen, 28 UNIT SC QHS, EA 03/01/19 Gabapentin* (Gabapentin*) 300 Mg Capsule, 600 MG PO BID, #60 CAP 03/01/19 Benazepril Hcl* (Benazepril Hcl*) 10 Mg Tablet, 10 MG PO DAILY, #30 TAB 03/01/19 Atenolol* (Atenolol*) 25 Mg Tablet, 25 MG PO BID, #60 TAB 03/01/19 Hydrochlorothiazide* (Hydrochlorothiazide*) 25 Mg Tab, 25 MG PO DAILY, #30 TAB 03/01/19 Glipizide* (Glipizide*) 10 Mg Tablet, 20 MG PO AC BREAKFAST DINNER, TAB 03/01/19 Discontinued Reported Medications Pioglitazone Hcl* (Pioglitazone Hcl*) 30 Mg Tablet, 30 MG PO DAILY, TAB 10/20/16 Gabapentin* (Gabapentin*) 100 Mg Capsule, 100 MG PO TID, #90 CAP 10/20/16 Benazepril Hcl* (Benazepril Hcl*) 10 Mg Tablet, 10 MG PO DAILY, #30 TAB 10/20/16 Atenolol* (Atenolol*) 25 Mg Tablet, 25 MG PO BID, #60 TAB 10/20/16 Hydrochlorothiazide* (Hydrochlorothiazide*) 25 Mg Tab, 25 MG PO DAILY, #30 TAB 10/20/16 Glipizide* (Glipizide*) 10 Mg Tablet, 10 MG PO AC BREAKFAST DINNER, TAB 10/20/16 Discontinued Scripts Azithromycin* (Zithromax*) 250 Mg Tablet, 250 MG PO .ANN DIRECTED, #6 TAB TAKE 500 MG (2 TABS) THE FIRST DAY THEN 250 MG (1 TAB) DAYS 2-5 Prov:OLYA DRUMMOND 10/21/16 Albuterol Sulfate* (Ventolin HFA*) 18 Gm Hfa.aer.ad, 2 PUFF INHALATION Q4H, #1 INHALER Prov:OLYA DRUMMOND 10/21/16 Prednisone* (Prednisone*) 20 Mg Tab, 40 MG PO DAILY for 4 Days, TAB Prov:OLYA DRUMMOND 10/21/16 Medications Current Medications Atenolol (Tenormin) 25 mg BID PO Last administered on 03/02/19at 08:15; Admin Dose 25 MG; Start 03/01/19 at 21:00 Atorvastatin Calcium (Lipitor) 20 mg QHS PO Last administered on 03/01/19at 20:24; Admin Dose 20 MG; Start 03/01/19 at 21:00 Benazepril HCl (Lotensin) 10 mg DAILY PO Last administered on 03/02/19at 08:14; Admin Dose 10 MG; Start 03/02/19 at 09:00 Gabapentin (Neurontin) 600 mg BID PO Last administered on 03/02/19at 08:14; Admin Dose 600 MG; Start 03/01/19 at 21:00 Hydrochlorothiazide (Hydrochlorothiazide) 25 mg DAILY PO Last administered on 03/02/19at 08:13; Admin Dose 25 MG; Start 03/02/19 at 09:00 IV Flush (NS 3 ml) 3 ml PER PROTOCOL IV ; Start 03/01/19 at 20:00 Ondansetron HCl (Zofran Inj) 4 mg Q6H PRN IV NAUSEA/VOMITING; Start 03/01/19 at 20:00 Nitroglycerin (Nitroglycerin (Sl Tab) 0.4 Mg) 1 tab Q5M PRN SL .CHEST PAIN; Start 03/01/19 at 20:00 Acetaminophen (Tylenol Tab) 650 mg Q6H PRN PO .PAIN 1-3 OR TEMP Last administered on 03/02/19at 13:05; Admin Dose 650 MG; Start 03/01/19 at 20:00 Morphine Sulfate (morphine) 2 mg Q4H PRN IV .PAIN 7-10; Start 03/01/19 at 20:00 Docusate Sodium (Colace) 100 mg Q12H PRN PO .CONSTIPATION; Start 03/01/19 at 20:00 Bisacodyl (Dulcolax) 5 mg DAILY PRN PO .CONSTIPATION; Start 03/01/19 at 20:00 Miscellaneous Information 1 ea NOTE XX ; Start 03/01/19 at 20:00 Glucose (Glutose) 15 gm Q15M PRN PO DECREASED GLUCOSE; Start 03/01/19 at 20:00 Glucose (Glutose) 22.5 gm Q15M PRN PO DECREASED GLUCOSE; Start 03/01/19 at 20:00 Dextrose (D50w Syringe) 25 ml Q15M PRN IV DECREASED GLUCOSE; Start 03/01/19 at 20:00 Dextrose (D50w Syringe) 50 ml Q15M PRN IV DECREASED GLUCOSE; Start 03/01/19 at 20:00 Glucagon (Glucagen) 1 mg Q15M PRN IM DECREASED GLUCOSE; Start 03/01/19 at 20:00 Glucose (Glutose) 15 gm Q15M PRN BUCCAL DECREASED GLUCOSE; Start 03/01/19 at 20:00 Diagnostic Test (Pha) (Accu-Chek) 1 ea 02 XX ; Start 03/03/19 at 02:00 Insulin Glargine (Lantus) 15 units DAILY@2000 SC ; Start 03/02/19 at 20:00 Insulin Aspart (Novolog Insulin Pen) 5 unit WITH MEALS SC Last administered on 03/02/19at 12:13; Admin Dose 5 UNIT; Start 03/02/19 at 12:00 Insulin Aspart (Novolog Insulin Pen) NOVOLOG *MILD* ALGORITHM WITH MEALS BEDTIME SC Last administered on 03/02/19at 12:15; Admin Dose 5 UNIT; Start 03/02/19 at 12:00 Acetaminophen/ Hydrocodone Bitart (Eckert (5/325)) 1 tab Q4H PRN PO MODERATE PAIN LEVEL 4-6 Last administered on 03/02/19at 15:12; Admin Dose 1 TAB; Start 03/02/19 at 15:00 Allergies: Coded Allergies: metformin (Unverified Allergy, Unknown, 03/01/19) naproxen (Unverified Allergy, Unknown, 03/01/19) Past Surgical History Past Surgical Hx: no surgical history Family History Significant Family History: heart disease Social History Alcohol Use: none Smoking Status: Former smoker Drug Use: none Exam/Review of Systems Vital Signs Vitals Vital Signs Date Temp Pulse Resp B/P (MAP) Pulse Ox O2 O2 Flow FiO2 Time Delivery Rate 03/02/19 63 16:10 03/02/19 98.0 17 114/57 93 Room Air 15:49 (76) 03/02/19 2.0 01:44 Exam Constitutional: alert, oriented (No apparent distress, obesity) Head: normocephalic Respiratory: clear to auscultation, normal air movement Cardiovascular: regular rate and rhythm (S1-S2 heard, no murmurs appreciated) Gastrointestinal: soft, non-tender, bowel sounds Extremities: other (No significant edema) Labs Result Diagram: 03/02/19 0512 03/02/19 0511 Results 24hrs Laboratory Tests Test 03/01/19 20:18 03/01/19 23:00 03/02/19 05:11 03/02/19 05:12 Bedside Glucose 259 H Creatine Kinase 69 66 Creatine Kinase 1.1 1.0 Index Creatinine Kinase MB 0.73 0.67 (Mass) Troponin I < 0.012 < 0.012 Sodium Level 140 Potassium Level 3.9 Chloride Level 102 Carbon Dioxide Level 30 Anion Gap 8 Blood Urea Nitrogen 21 H Creatinine 0.81 Est Glomerular > 60 Filtrat Rate mL/min Glucose Level 292 H Calcium Level 9.5 Magnesium Level 1.8 Total Bilirubin 0.4 Direct Bilirubin 0.00 Indirect Bilirubin 0.4 Aspartate Amino 15 Transf (AST/SGOT) Alanine 20 Aminotransferase (AL T/SGPT) Alkaline Phosphatase 123 H Total Protein 6.6 Albumin 3.5 Globulin 3.10 Albumin/Globulin 1.12 Ratio Triglycerides Level 298 H Cholesterol Level 157 LDL Cholesterol, 61 Calculated HDL Cholesterol 36 Cholesterol/HDL 4.3 Ratio Thyroid Stimulating 0.999 Hormone (TSH) White Blood Count 7.1 Red Blood Count 4.21 Hemoglobin 12.3 Hematocrit 37.4 Mean Corpuscular 88.8 Volume Mean Corpuscular 29.2 Hemoglobin Mean Corpuscular 32.9 Hemoglobin Concent Red Cell 13.1 Distribution Width Platelet Count 234 Mean Platelet Volume 10.4 Immature 0.300 Granulocytes % Neutrophils % 51.2 Lymphocytes % 36.6 Monocytes % 5.4 Eosinophils % 5.5 Basophils % 1.0 Nucleated Red Blood 0.0 Cells % Immature 0.020 Granulocytes # Neutrophils # 3.6 Lymphocytes # 2.6 Monocytes # 0.4 Eosinophils # 0.4 Basophils # 0.1 Nucleated Red Blood 0.0 Cells # Hemoglobin A1c 10.4 H Test 03/02/19 08:07 03/02/19 11:50 Bedside Glucose 276 H 323 H Imaging Imaging ECG sinus rhythm, normal QRS duration, no significant ischemic ST abnormalities Medications Medications Current Medications Atenolol (Tenormin) 25 mg BID PO Last administered on 03/02/19at 08:15; Admin Dose 25 MG; Start 03/01/19 at 21:00 Atorvastatin Calcium (Lipitor) 20 mg QHS PO Last administered on 03/01/19at 20:24; Admin Dose 20 MG; Start 03/01/19 at 21:00 Benazepril HCl (Lotensin) 10 mg DAILY PO Last administered on 03/02/19at 08:14; Admin Dose 10 MG; Start 03/02/19 at 09:00 Gabapentin (Neurontin) 600 mg BID PO Last administered on 03/02/19 08:14; Ad min Dose 600 MG; Start 03/01/19 at 21:00 Hydrochlorothiazide (Hydrochlorothiazide) 25 mg DAILY PO Last administered on 03/02/19at 08:13; Admin Dose 25 MG; Start 03/02/19 at 09:00 IV Flush (NS 3 ml) 3 ml PER PROTOCOL IV ; Start 03/01/19 at 20:00 Ondansetron HCl (Zofran Inj) 4 mg Q6H PRN IV NAUSEA/VOMITING; Start 03/01/19 at 20:00 Nitroglycerin (Nitroglycerin (Sl Tab) 0.4 Mg) 1 tab Q5M PRN SL .CHEST PAIN; Start 03/01/19 at 20:00 Acetaminophen (Tylenol Tab) 650 mg Q6H PRN PO .PAIN 1-3 OR TEMP Last administered on 03/02/19at 13:05; Admin Dose 650 MG; Start 03/01/19 at 20:00 Morphine Sulfate (morphine) 2 mg Q4H PRN IV .PAIN 7-10; Start 03/01/19 at 20:00 Docusate Sodium (Colace) 100 mg Q12H PRN PO .CONSTIPATION; Start 03/01/19 at 20:00 Bisacodyl (Dulcolax) 5 mg DAILY PRN PO .CONSTIPATION; Start 03/01/19 at 20:00 Miscellaneous Information 1 ea NOTE XX ; Start 03/01/19 at 20:00 Glucose (Glutose) 15 gm Q15M PRN PO DECREASED GLUCOSE; Start 03/01/19 at 20:00 Glucose (Glutose) 22.5 gm Q15M PRN PO DECREASED GLUCOSE; Start 03/01/19 at 20:00 Dextrose (D50w Syringe) 25 ml Q15M PRN IV DECREASED GLUCOSE; Start 03/01/19 at 20:00 Dextrose (D50w Syringe) 50 ml Q15M PRN IV DECREASED GLUCOSE; Start 03/01/19 at 20:00 Glucagon (Glucagen) 1 mg Q15M PRN IM DECREASED GLUCOSE; Start 03/01/19 at 20:00 Glucose (Glutose) 15 gm Q15M PRN BUCCAL DECREASED GLUCOSE; Start 03/01/19 at 20:00 Diagnostic Test (Pha) (Accu-Chek) 1 ea 02 XX ; Start 03/03/19 at 02:00 Insulin Glargine (Lantus) 15 units DAILY@2000 SC ; Start 03/02/19 at 20:00 Insulin Aspart (Novolog Insulin Pen) 5 unit WITH MEALS SC Last administered on 03/02/19at 12:13; Admin Dose 5 UNIT; Start 03/02/19 at 12:00 Insulin Aspart (Novolog Insulin Pen) NOVOLOG *MILD* ALGORITHM WITH MEALS BEDTIME SC Last administered on 03/02/19at 12:15; Admin Dose 5 UNIT; Start 03/02/19 at 12:00 Acetaminophen/ Hydrocodone Bitart (Eckert (5/325)) 1 tab Q4H PRN PO MODERATE PAIN LEVEL 4-6 Last administered on 03/02/19at 15:12; Admin Dose 1 TAB; Start 03/02/19 at 15:00 Ortega Villalobos DO Mar 02, 2019 16:33
[2019-03-02] MEDS ORDERED: INSULIN GLARGINE [LANTus] (100 UNITS/ML) SYG SC SCH (20:00)
[2019-03-02] MEDS: ATORVASTATIN 20 MG TAB PO SCH (20:22)
[2019-03-03] VITALS (10 sets, daily range): BP systolic 91–120; BP diastolic 50–62; PULSE 68–89; RESP 18–22
[2019-03-03] MEDS ORDERED: ACCU-CHEK XX SCH (02:00)
[2019-03-03] MEDS: HYDROCODONE/APAP (5/325) TAB PO PRN (05:01)
[2019-03-03] MEDS: INSULIN ASPART [NOVOLOG] 3 ML PEN SC SCH ×3 (08:00→12:00)
[2019-03-03] MEDS: HYDROCHLOROTHIAZIDE 25 MG TAB PO SCH (08:40)
[2019-03-03] MEDS: BENAZEPRIL 10 MG TAB PO SCH (08:41)
[2019-03-03] MEDS: ATENOLOL 25 MG TAB PO SCH (08:42)
[2019-03-03] MEDS: GABAPENTIN 300 MG CAP PO SCH (08:44)
[2019-03-03] MEDS ORDERED: REGADENOSON 0.4 MG/5 ML SYG ONE (12:03)
--- NOTE | 2019-03-03 14:56 | CONS ---
Assessment/Plan Assessment/Plan Hospital Course (Demo Recall) Chest pain-resolved Preserved left ventricular ejection fraction Hypertension Dyslipidemia Obesity Patient denies any further chest pain or shortness of breath Pending nuclear cardiac perfusion study today. Aggressive risk factor management Consultation Date/Type/Reason Admit Date/Time Mar 01, 2019 at 18:38 Initial Consult Date Type of Consult Cardiology Date/Time of Note DATE: 03/03/19 TIME: 14:55 24 HR Interval Summary Free Text/Dictation Denies further chest pain, shortness of breath, palpitations Exam/Review of Systems Vital Signs Vitals Vital Signs Date Temp Pulse Resp B/P (MAP) Pulse Ox O2 O2 Flow FiO2 Time Delivery Rate 03/03/19 71 12:11 03/03/19 98.0 22 116/60 96 Room Air 11:23 (78) 03/03/19 2.0 07:32 Intake and Output 03/02/19 03/02/19 03/03/19 1515:00 23:00 07:00 IntakeIntake Total 300 ml BalanceBalance 300 ml Exam Constitutional: alert, oriented (No apparent distress) Head: normocephalic Respiratory: clear to auscultation, normal air movement Cardiovascular: regular rate and rhythm (S1-S2 heard) Gastrointestinal: soft, non-tender, bowel sounds Extremities: other (No significant edema) Labs Result Diagram: 03/03/19 0534 03/03/19 0534 Results 24hrs Laboratory Tests Test 03/02/19 17:06 03/02/19 20:16 03/03/19 01:54 03/03/19 05:34 Bedside Glucose 194 239 H 272 H White Blood Count 8.1 Red Blood Count 4.36 Hemoglobin 12.6 Hematocrit 38.2 Mean Corpuscular 87.6 Volume Mean Corpuscular 28.9 L Hemoglobin Mean Corpuscular 33.0 Hemoglobin Concent Red Cell 12.9 Distribution Width Platelet Count 230 Mean Platelet Volume 10.1 Immature 0.500 H Granulocytes % Neutrophils % 53.0 Lymphocytes % 35.2 Monocytes % 5.1 Eosinophils % 5.1 Basophils % 1.1 Nucleated Red Blood 0.0 Cells % Immature 0.040 H Granulocytes # Neutrophils # 4.3 Lymphocytes # 2.9 Monocytes # 0.4 Eosinophils # 0.4 Basophils # 0.1 Nucleated Red Blood 0.0 Cells # Sodium Level 140 Potassium Level 4.2 Chloride Level 103 Carbon Dioxide Level 28 Anion Gap 9 Blood Urea Nitrogen 23 H Creatinine 0.65 Est Glomerular > 60 Filtrat Rate mL/min Glucose Level 248 H Calcium Level 9.5 Test 03/03/19 08:06 03/03/19 13:29 Bedside Glucose 222 H 134 Medications Medications Current Medications Atenolol (Tenormin) 25 mg BID PO Last administered on 03/02/19 08:15; Admin Dose 25 MG; Start 03/01/19 at 21:00 Atorvastatin Calcium (Lipitor) 20 mg QHS PO Last administered on 03/02/19at 20:22; Admin Dose 20 MG; Start 03/01/19 at 21:00 Benazepril HCl (Lotensin) 10 mg DAILY PO Last administered on 03/02/19at 08:14; Admin Dose 10 MG; Start 03/02/19 at 09:00 Gabapentin (Neurontin) 600 mg BID PO Last administered on 03/03/19at 08:44; Admin Dose 600 MG; Start 03/01/19 at 21:00 Hydrochlorothiazide (Hydrochlorothiazide) 25 mg DAILY PO Last administered on 03/02/19at 08:13; Admin Dose 25 MG; Start 03/02/19 at 09:00 IV Flush (NS 3 ml) 3 ml PER PROTOCOL IV ; Start 03/01/19 at 20:00 Ondansetron HCl (Zofran Inj) 4 mg Q6H PRN IV NAUSEA/VOMITING; Start 03/01/19 at 20:00 Nitroglycerin (Nitroglycerin (Sl Tab) 0.4 Mg) 1 tab Q5M PRN SL .CHEST PAIN; Start 03/01/19 at 20:00 Acetaminophen (Tylenol Tab) 650 mg Q6H PRN PO .PAIN 1-3 OR TEMP Last administer ed on 03/02/19at 13:05; Admin Dose 650 MG; Start 03/01/19 at 20:00 Morphine Sulfate (morphine) 2 mg Q4H PRN IV .PAIN 7-10; Start 03/01/19 at 20:00 Docusate Sodium (Colace) 100 mg Q12H PRN PO .CONSTIPATION; Start 03/01/19 at 20:00 Bisacodyl (Dulcolax) 5 mg DAILY PRN PO .CONSTIPATION; Start 03/01/19 at 20:00 Miscellaneous Information 1 ea NOTE XX ; Start 03/01/19 at 20:00 Glucose (Glutose) 15 gm Q15M PRN PO DECREASED GLUCOSE; Start 03/01/19 at 20:00 Glucose (Glutose) 22.5 gm Q15M PRN PO DECREASED GLUCOSE; Start 03/01/19 at 20:00 Dextrose (D50w Syringe) 25 ml Q15M PRN IV DECREASED GLUCOSE; Start 03/01/19 at 20:00 Dextrose (D50w Syringe) 50 ml Q15M PRN IV DECREASED GLUCOSE; Start 03/01/19 at 20:00 Glucagon (Glucagen) 1 mg Q15M PRN IM DECREASED GLUCOSE; Start 03/01/19 at 20:00 Glucose (Glutose) 15 gm Q15M PRN BUCCAL DECREASED GLUCOSE; Start 03/01/19 at 20:00 Diagnostic Test (Pha) (Accu-Chek) 1 ea 02 XX ; Start 03/03/19 at 02:00 Insulin Aspart (Novolog Insulin Pen) NOVOLOG *MILD* ALGORITHM WITH MEALS BEDTIME SC Last administered on 03/03/19at 08:38; Admin Dose 3 UNIT; Start 03/02/19 at 12:00 Acetaminophen/ Hydrocodone Bitart (Grady (5/325)) 1 tab Q4H PRN PO MODERATE PAIN LEVEL 4-6 Last administered on 03/03/19at 05:01; Admin Dose 1 TAB; Start 03/02/19 at 15:00 Insulin Aspart (Novolog Insulin Pen) 8 unit WITH MEALS SC ; Start 03/03/19 at 18:00 Insulin Glargine (Lantus) 25 units DAILY@2000 SC ; Start 03/03/19 at 20:00 Ortega Villalobos DO Mar 03, 2019 14:56
[2019-03-03] MEDS ORDERED: ATEN-51 PO (17:21)
[2019-03-03] MEDS ORDERED: HYDR25TA6 PO (17:21)
[2019-03-03] MEDS ORDERED: INSU100I12 SQ (17:21)
[2019-03-03] MEDS ORDERED: BENA10TA4 PO (17:21)
[2019-03-03] MEDS ORDERED: ATOR20TA65 PO (17:21)
--- NOTE | 2019-03-03 17:22 | PDOCDIS ---
Discharge Instructions DIAGNOSIS Discharge Diagnosis 1. Chest pain. 2. Hypertension. 3. Diabetes. 4. Hyperlipidemia. CONDITION [id number] Patient Condition: [id number] Stable HOME CARE INSTRUCTIONS: [id number] Diet Instructions: [id number] Low Fat /Cholesterol FOLLOW UP/APPOINTMENTS Follow-up Plan 1. Follow up with your primary care provider in one week - follow up for further management of your diabetes STORM BRAN NP Mar 03, 2019 17:22
--- NOTE | 2019-03-03 17:25 | DS ---
Date/Time of Note Date/Time of Note DATE: 03/03/19 TIME: 17:25 Discharge Summary Admission/Discharge Info Admit Date/Time Mar 01, 2019 at 18:38 Discharge Date/Time Discharge Diagnosis 1. Chest pain. 2. Hypertension. 3. Diabetes. 4. Hyperlipidemia. Patient Condition: Stable Hospital Course This is a 58-year-old female with history of hypertension, hyperlipidemia, diabetes, who came to [facility] due to reports of chest pain more notably on exertion. She reported that she had chest pain at 3:30 PM after she came home from lunch on the day of admission. She started feeling chest heaviness. Of note she reported that she had an argument with a relative that she suspects started her chest pain. As such she went to the hospital. It was noted that she received nitro spray on the field which did help alleviate her symptoms. Due to her symptoms she was seen by railroad surveyor. She did have echocardiogram done that did show to have an EF of 60% with stage I diastolic dysfunction. She also did undergo Lexiscan stress test which per report showed no evidence of perfusion defects and left ventricle ejection fraction at stress at 65%. During the course of stay she did improve. She did report some resolution of her chest pain. We did resume her on antihypertensives for high blood pressure. It was noted that her diabetes was also poorly controlled and we did adjust her insulin regimen. Of note her A1c was 10.4. She was resumed on statin medication for her high cholesterol and advised for weight reduction for her obesity. The plan of care was discussed with the patient and patient v erbalized understanding. On the day of discharge patient was in stable condition Discussed POC with [facility] Active Scripts Insulin Lispro (Humalog Kwikpen U-100) 100 Unit/1 Ml Insuln.pen, 10 UNIT SQ AC MEALS, #1 EA Prov:STORM BRAN CALL CIRCUIT WORKER 03/03/19 Atorvastatin Calcium (Atorvastatin Calcium) 20 Mg Tablet, 40 MG PO QHS, #30 TAB Prov:STORM BRAN CALL CIRCUIT WORKER 03/03/19 Benazepril Hcl* (Benazepril Hcl*) 10 Mg Tablet, 10 MG PO DAILY, #30 TAB Prov:STORM BRAN CALL CIRCUIT WORKER 03/03/19 Atenolol* (Atenolol*) 25 Mg Tablet, 25 MG PO BID, #60 TAB Prov:STORM BRAN CALL CIRCUIT WORKER 03/03/19 Hydrochlorothiazide* (Hydrochlorothiazide*) 25 Mg Tab, 25 MG PO DAILY, #30 TAB Prov:STORM BRAN CALL CIRCUIT WORKER 03/03/19 Reported Medications Insulin Glargine,Hum.rec.anlog (Basaglar Kwikpen U-100) 100 Unit/1 Ml Insuln.pen, 28 UNIT SC QHS, EA 03/01/19 Gabapentin* (Gabapentin*) 300 Mg Capsule, 600 MG PO BID, #60 CAP 03/01/19 Discontinued Reported Medications Pioglitazone Hcl* (Pioglitazone Hcl*) 30 Mg Tablet, 30 MG PO DAILY, TAB 03/01/19 Atorvastatin Calcium* (Atorvastatin Calcium*) 20 Mg Tablet, 20 MG PO QHS, #30 TAB 03/01/19 Glipizide* (Glipizide*) 10 Mg Tablet, 20 MG PO AC BREAKFAST DINNER, TAB 03/01/19 Pioglitazone Hcl* (Pioglitazone Hcl*) 30 Mg Tablet, 30 MG PO DAILY, TAB 10/20/16 Gabapentin* (Gabapentin*) 100 Mg Capsule, 100 MG PO TID, #90 CAP 10/20/16 Benazepril Hcl* (Benazepril Hcl*) 10 Mg Tablet, 10 MG PO DAILY, #30 TAB 10/20/16 Atenolol* (Atenolol*) 25 Mg Tablet, 25 MG PO BID, #60 TAB 10/20/16 Hydrochlorothiazide* (Hydrochlorothiazide*) 25 Mg Tab, 25 MG PO DAILY, #30 TAB 10/20/16 Glipizide* (Glipizide*) 10 Mg Tablet, 10 MG PO AC BREAKFAST DINNER, TAB 10/20/16 Discontinued Scripts Azithromycin* (Zithromax*) 250 Mg Tablet, 250 MG PO .ANN DIRECTED, #6 TAB TAKE 500 MG (2 TABS) THE FIRST DAY THEN 250 MG (1 TAB) DAYS 2-5 Prov:OLYA DRUMMOND 10/21/16 Albuterol Sulfate* (Ventolin HFA*) 18 Gm Hfa.aer.ad, 2 PUFF INHALATION Q4H, #1 INHALER Prov:OLYA DRUMMOND 10/21/16 Prednisone* (Prednisone*) 20 Mg Tab, 40 MG PO DAILY for 4 Days, TAB Prov:MOGHADAM,OLYA S. 10/21/16 Follow-up Plan 1. Follow up with your primary care provider in one week - follow up for further management of your diabetes Primary Care Provider Not On Staff Doctor Time spent on discharge: > 30 minutes Pending Labs Laboratory Tests Test 03/02/19 20:16 03/03/19 01:54 03/03/19 05:34 03/03/19 08:06 Bedside 239 272 222 Glucose mg/dL (70-220) mg/dL (70-220) mg/dL (70-220) White Blood 8.1 Count 10^3/ul (4.8-1 0.8) Red Blood 4.36 Count 10^6/ul (4.20- 5.40) Hemoglobin 12.6 g/dl (12.0-16. 0) Hematocrit 38.2 % (37.0-47.0) Mean 87.6 Corpuscular fl (82.0-101.0 Volume ) Mean 28.9 Corpuscular pg (29.0-33.0) Hemoglobin Mean 33.0 Corpuscular g/dl (32.0-37. Hemoglobin Conc 0) ent Red Cell 12.9 Distribution % (11.5-14.5) Width Platelet Count 230 10^3/UL (140-4 15) Mean Platelet 10.1 Volume fl (7.4-10.4) Immature 0.500 Granulocytes % % (0.001-0.429 ) Neutrophils % 53.0 % (39.0-77.0) Lymphocytes % 35.2 % (15.0-51.0) Monocytes % 5.1 % (0.0-11.0) Eosinophils % 5.1 % (0.0-7.0) Basophils % 1.1 % (0.0-2.0) Nucleated Red 0.0 Blood Cells % /100WBC (0.0-0 .0) Immature 0.040 Granulocytes # 10^3/ul (0.0-0 .031) Neutrophils # 4.3 10^3/ul (1.6-7 .5) Lymphocytes # 2.9 10^3/ul (0.8-2 .9) Monocytes # 0.4 10^3/ul (0.3-0 .9) Eosinophils # 0.4 10^3/ul (0.0-0 .5) Basophils # 0.1 10^3/ul (0.0-0 .1) Nucleated Red 0.0 Blood Cells # 10^3/ul (0.0-0 .0) Sodium Level 140 mmol/L (135-14 4) Potassium 4.2 Level mmol/L (3.5-5. 1) Chloride Level 103 mmol/L (97-110 ) Carbon Dioxide 28 Level mmol/L (21-31) Anion Gap 9 (5-13) Blood Urea 23 Nitrogen mg/dl (7-20) Creatinine 0.65 mg/dl (0.44-1. 00) Est Glomerular > 60 Filtrat mL/min (>60) Rate mL/min Glucose Level 248 mg/dl (70-220) Calcium Level 9.5 mg/dl (8.4-10. 2) Test 03/03/19 13:29 Bedside 134 Glucose mg/dL (70-220) STORM BRAN NP Mar 03, 2019 17:25
[2019-03-03] MEDS ORDERED: INSULIN ASPART [NOVOLOG] 3 ML PEN SC SCH (18:00)
[2019-03-03] MEDS ORDERED: INSULIN GLARGINE [LANTus] (100 UNITS/ML) SYG SC SCH (20:00)
== END 2019-03-03 18:14 | disposition home or self-care (01) ==
LOC: E/R 15:43 → 6WM 18:38
PROVIDERS: ADMIT Family Medicine; ATTEND Family Medicine
DX: R07.9 Chest pain, unspecified (principal); E11.9 Type 2 diabetes mellitus without complications; I10 Essential (primary) hypertension; E78.5 Hyperlipidemia, unspecified; E66.01 Morbid (severe) obesity due to excess calories; Z68.41 Body mass index [BMI] 40.0-44.9, adult; Z79.4 Long term (current) use of insulin
CPT/HCPCS: 71045; 78452; 80048; 80053; 80061; 82550; 82553; 82962; 83036; 83735; 84443; 84484; 85025; 93005; 93017; 93306; A9500; A9505; J1815; J2785; Z7500; Z7502; Z7610; G0378